=== PATIENT | female | born 1955 | race Caucasian/White ===

== ENCOUNTER → 2016-05-08 | Outpatient (CLI) | payer BC ==
[2016-05-08 18:01] LABS: BASO % 0.5 % (0.0-1.0); EOS # 0.2 K/mm3 (0.0-0.50); EOS % 2.4 % (0.0-3.0); LARGE UNSTAINED CELL # 0.2 K/mm3 (0.0-0.4); LARGE UNSTAINED CELL % 2.5 % (0.0-4.0); LYMPH # 2.5 K/mm3 (1.5-4.5); LYMPH % 31.8 % (24.0-44.0); MEAN CORPUSCULAR HEMOGLOBIN 31.2 pg (27.0-33.0); MEAN CORPUSCULAR HGB CONC 34.2 g/dl (32.0-36.5); MEAN CORPUSCULAR VOLUME 91.3 fl (80.0-96.0); MONO # 0.3 K/mm3 (0.0-0.8); MONO % 4.5 % (0.0-5.0); NEUTROPHILS # 4.5 K/mm3 (1.8-7.7); NEUTROPHILS % 58.5 % (36.0-66.0); PLATELET COUNT, AUTOMATED 284 k/mm3 (150-450); RED CELL DISTRIBUTION WIDTH 13.1 % (11.5-14.5); WHITE BLOOD COUNT 7.7 K/mm3 (4.0-10.0)
[2016-05-08 18:06] LABS: ALBUMIN 4.1 GM/DL (3.2-5.2); ALBUMIN/GLOBULIN RATIO 1.41 (1.00-1.93); ALKALINE PHOSPHATASE 77 U/L (45-117); ALT/SGPT 50 U/L (12-78); ANION GAP 7 MEQ/L (8-16); AST/SGOT 18 U/L (15-37); BILIRUBIN,TOTAL 0.4 MG/DL (0.2-1.0); BLOOD UREA NITROGEN 18 MG/DL (7-18); CARBON DIOXIDE LEVEL 33 MEQ/L (21-32); CHLORIDE LEVEL 106 MEQ/L (98-107); CHOLESTEROL LEVEL 229 MG/DL (<200); CREATININE FOR GFR 0.88 MG/DL (0.55-1.02); GLOMERULAR FILTRATION RATE > 60.0 (>45); GLUCOSE, FASTING 98 MG/DL (80-110); MAGNESIUM LEVEL 1.9 MG/DL (1.8-2.4); POTASSIUM SERUM 4.1 MEQ/L (3.5-5.1); SODIUM LEVEL 146 MEQ/L (136-145); TRIGLYCERIDES LEVEL 79 MG/DL (<150)
== END ==
LOC: M WUC 12:13
PROVIDERS: ATTEND Family Medicine
DX: I10 Essential (primary) hypertension (principal)

== ENCOUNTER → 2016-06-08 | Outpatient (REF) | payer BC ==
[2016-06-08 19:29] LABS: BACTERIA, URINE NONE SEEN; HYALINE CAST, URINE NONE SEEN /lpf (0-1); MICROSCOPIC EXAM PERFORMED; RBC, URINE 0-1 /hpf (0-3); SQUAMOUS EPITHELIAL CELL URINE SMALL AMOUNT /hpf (SMALL AMT); WBC, URINE NONE SEEN /hpf (0-3)
== END ==
LOC: M SMT 16:58
PROVIDERS: ATTEND Specialist
DX: N95.2 Postmenopausal atrophic vaginitis (principal)

== ENCOUNTER 2017-01-06 08:02 | Outpatient (CLI) | payer BC ==
[~2017-01-06] VITALS: Ht 154.9 cm; Wt 76.2 kg
[~2017-01-06 08:02] MED LIST: HYDR25TA6 PO; LOSA50TA20 PO; MULT1TAB10 PO
[2017-01-06] MEDS: NS 1,000 ML IV SCH ×2 (08:15→08:41)
[2017-01-06] MEDS ORDERED: PROPOFOL 200 MG/20 ML VIAL As Ordered ONE (08:55)
[2017-01-06] MEDS ORDERED: LIDOCAINE 2% INJ 100 MG/5 ML SDV (FOR ANES.) As Ordered ONE (08:56)
[2017-01-06] MEDS ORDERED: ONDANSETRON 4MG/2ML VIAL (J2405) As Ordered ONE (09:21)
--- NOTE | 2017-01-06 09:36 | ROOR ---
Patient Name: Catrachita Swann Procedure Date: 01/06/2017 9:16 AM Date of : 1955 Age: 61 Room: [facility] Gender: Female Note Status: Finalized Procedure: Total Colonoscopy to Cecum Indications: High risk colon cancer surveillance: Personal history of colon cancer Providers: Mo Coelho MD Referring MD: Henny Harvey MD Requesting Provider: Medicines: Monitored Anesthesia Care Complications: No immediate complications. Procedure: Pre-Anesthesia Assessment: - The heart rate, respiratory rate, oxygen saturations, blood pressure, adequacy of pulmonary ventilation, and response to care were monitored throughout the procedure. The Colonoscope was introduced through the anus and advanced to the cecum, identified by appendiceal orifice and ileocecal valve. The colonoscopy was performed without difficulty. The patient tolerated the procedure well. The quality of the bowel preparation was good. Findings: The perianal and digital rectal examinations were normal. Non-bleeding internal hemorrhoids were found during retroflexion. The hemorrhoids were small and Grade I (internal hemorrhoids that do not prolapse). Scattered small-mouthed diverticula were found in the recto-sigmoid colon, sigmoid colon and descending colon. The exam was otherwise without abnormality on direct and retroflexion views. Impression: - Non-bleeding internal hemorrhoids. - Diverticulosis in the recto-sigmoid colon, in the sigmoid colon and in the descending colon. - The examination was otherwise normal on direct and retroflexion views. - No specimens collected. Recommendation: - Patient has a contact number available for emergencies. The signs and symptoms of potential delayed complications were discussed with the patient. Return to normal activities tomorrow. Written discharge instructions were provided to the patient. - Discharge patient to home. - Continue present medications. - Repeat colonoscopy in 5 years for surveillance. - Return to referring physician. - High fiber diet. - The findings and recommendations were discussed with the patient's family. Mo Coelho MD Mo Coelho MD 01/06/2017 9:35:29 AM This report has been signed electronically. Number of Addenda: 0 Note Initiated On: 01/06/2017 9:16 AM Estimated Blood Loss: Estimated blood loss: none.
[2017-01-06 09:55] VITALS: BP 142/84
== END 2017-01-06 10:02 | disposition home or self-care (01) ==
LOC: M OPP 08:02
PROVIDERS: ATTEND Internal Medicine Gastroenterology
DX: Z12.11 Encounter for screening for malignant neoplasm of colon (principal); Z85.038 Personal history of other malignant neoplasm of large intestine; K64.0 First degree hemorrhoids; K57.30 Diverticulosis of large intestine without perforation or abscess without bleeding; I10 Essential (primary) hypertension; R12 Heartburn; Z86.19 Personal history of other infectious and parasitic diseases; M19.90 Unspecified osteoarthritis, unspecified site; M54.9 Dorsalgia, unspecified; G43.909 Migraine, unspecified, not intractable, without status migrainosus; Z87.440 Personal history of urinary (tract) infections; Z88.8 Allergy status to other drugs, medicaments and biological substances; Z88.5 Allergy status to narcotic agent; Z79.899 Other long term (current) drug therapy; Z83.71 Family history of colonic polyps; Z87.891 Personal history of nicotine dependence; Z80.0 Family history of malignant neoplasm of digestive organs
CPT/HCPCS: G0105; J2405

== ENCOUNTER 2017-09-14 16:17 | Emergency (ER) | payer BC, SELFPAY ==
[2017-09-14 17:11] LABS: BASO % 0.4 % (0.0-1.0); EOS # 0.2 10^3/uL (0.0-0.50); EOS % 1.8 % (0.0-3.0); HEMATOCRIT 44.6 % (36.0-47.0); HEMOGLOBIN 15.1 g/dl (12.0-15.5); IMMATURE GRANULOCYTE % 0.2 % (0-3.0); LYMPH # 3.1 10^3/uL (1.5-4.5); LYMPH % 31.6 % (24.0-44.0); MEAN CORPUSCULAR HEMOGLOBIN 30.3 pg (27.0-33.0); MEAN CORPUSCULAR HGB CONC 33.9 g/dl (32.0-36.5); MEAN CORPUSCULAR VOLUME 89.6 fl (80.0-96.0); MONO # 0.8 10^3/uL (0.0-0.8); MONO % 7.6 % (0.0-5.0); NEUTROPHILS # 5.7 10^3/uL (1.8-7.7); NEUTROPHILS % 58.4 % (36.0-66.0); PLATELET COUNT, AUTOMATED 330 10^3/uL (150-450); RED BLOOD COUNT 4.98 10^6/uL (4.00-5.40); RED CELL DISTRIBUTION WIDTH 13.2 % (11.5-14.5); WHITE BLOOD COUNT 9.8 10^3/uL (4.0-10.0)
[2017-09-14 17:38] LABS: ALBUMIN 4.1 GM/DL (3.2-5.2); ALBUMIN/GLOBULIN RATIO 1.24 (1.00-1.93); ALKALINE PHOSPHATASE 85 U/L (45-117); ALT/SGPT 172 U/L (12-78); ANION GAP 4 MEQ/L (8-16); AST/SGOT 244 U/L (7-37); BILIRUBIN,DIRECT 0.2 MG/DL (0.0-0.2); BILIRUBIN,TOTAL 0.4 MG/DL (0.2-1.0); BLOOD UREA NITROGEN 22 MG/DL (7-18); CALCIUM LEVEL 9.3 MG/DL (8.8-10.2); CARBON DIOXIDE LEVEL 34 MEQ/L (21-32); CHLORIDE LEVEL 105 MEQ/L (98-107); CPK CREATINE PHOSPHOKINASE 79 U/L (26-192); CREATININE FOR GFR 0.99 MG/DL (0.55-1.30); GLOMERULAR FILTRATION RATE > 60.0 (>45); GLUCOSE, FASTING 103 MG/DL (70-100); LIPASE 127 U/L (73-393); POTASSIUM SERUM 3.2 MEQ/L (3.5-5.1); SODIUM LEVEL 143 MEQ/L (136-145); TOTAL PROTEIN 7.4 GM/DL (6.4-8.2); TROPONIN I < 0.02 NG/ML (< 0.10)
[2017-09-14] MEDS: GI COCKTAIL 50ML BTL(HYOSCYAMINE/MAALOX/LIDOCAINE VISCOUS)(1:3:1) PO (17:48)
[2017-09-14] MEDS: ASPIRIN 81 MG CHEW TABLET PO (17:48)
[2017-09-14 17:53] LABS: CK-MB VALUE MASS 1.6 NG/ML (<3.6); MB/CK RELATIVE INDEX 2.02 (< OR =4); NT-PRO BNP 29 PG/ML (<125)
[2017-09-14] MEDS: POTASSIUM CHLORIDE 10 MEQ SR TABLET PO (18:24)
[2017-09-14 20:19] LABS: INR 0.92; PROTHROMBIN TIME 12.4 SECONDS (12.4-14.5)
[2017-09-14 22:22] LABS: CK-MB VALUE MASS 1.3 NG/ML (<3.6); CPK CREATINE PHOSPHOKINASE 61 U/L (26-192); MB/CK RELATIVE INDEX 2.13 (< OR =4); TROPONIN I < 0.02 NG/ML (< 0.10)
[2017-09-15 10:59] LABS: HEPATITIS B SURFACE ANTIGEN NEGATIVE (NEGATIVE)
[2017-09-15 11:26] LABS: HEPATITIS B CORE ANTIBODY IGM NEGATIVE (NEGATIVE)
[2017-09-15 11:28] LABS: HEPATITIS A ANTIBODY IGM NEGATIVE (NEGATIVE)
== END 2017-09-14 23:48 | disposition home or self-care (01) ==
LOC: M ED 16:17
DX: R07.89 Other chest pain (principal); I10 Essential (primary) hypertension; Z79.899 Other long term (current) drug therapy; Z88.5 Allergy status to narcotic agent; Z88.8 Allergy status to other drugs, medicaments and biological substances
CPT/HCPCS: 71045

== ENCOUNTER → 2017-10-05 | Outpatient (CLI) | payer BC ==
[2017-10-05 13:16] LABS: BASO % 0.5 % (0.0-1.0); EOS # 0.1 10^3/uL (0.0-0.50); EOS % 1.5 % (0.0-3.0); HEMATOCRIT 42.2 % (36.0-47.0); HEMOGLOBIN 14.5 g/dl (12.0-15.5); IMMATURE GRANULOCYTE % 0.1 % (0-3.0); LYMPH # 2.3 10^3/uL (1.5-4.5); LYMPH % 31.2 % (24.0-44.0); MEAN CORPUSCULAR HEMOGLOBIN 30.4 pg (27.0-33.0); MEAN CORPUSCULAR HGB CONC 34.4 g/dl (32.0-36.5); MEAN CORPUSCULAR VOLUME 88.5 fl (80.0-96.0); MONO # 0.5 10^3/uL (0.0-0.8); MONO % 7.4 % (0.0-5.0); NEUTROPHILS # 4.4 10^3/uL (1.8-7.7); NEUTROPHILS % 59.3 % (36.0-66.0); PLATELET COUNT, AUTOMATED 324 10^3/uL (150-450); RED BLOOD COUNT 4.77 10^6/uL (4.00-5.40); WHITE BLOOD COUNT 7.3 10^3/uL (4.0-10.0)
[2017-10-05 16:06] LABS: ALBUMIN 3.9 GM/DL (3.2-5.2); ALKALINE PHOSPHATASE 71 U/L (45-117); ALT/SGPT 39 U/L (12-78); ANION GAP 10 MEQ/L (8-16); AST/SGOT 17 U/L (7-37); BILIRUBIN,TOTAL 0.4 MG/DL (0.2-1.0); BLOOD UREA NITROGEN 21 MG/DL (7-18); CALCIUM LEVEL 8.8 MG/DL (8.8-10.2); CARBON DIOXIDE LEVEL 29 MEQ/L (21-32); CHLORIDE LEVEL 103 MEQ/L (98-107); CHOLESTEROL LEVEL 203 MG/DL (<200); CHOLESTEROL RISK RATIO 3.561 (<5); CREATININE FOR GFR 0.85 MG/DL (0.55-1.30); GLOMERULAR FILTRATION RATE > 60.0 (>45); GLUCOSE, FASTING 87 MG/DL (70-100); HDL CHOLESTEROL 57 MG/DL (>40); LDL CHOLESTEROL 132.4 MG/DL (<100); NON-HDL-C 146 MG/DL; POTASSIUM SERUM 3.9 MEQ/L (3.5-5.1); SODIUM LEVEL 142 MEQ/L (136-145); TOTAL PROTEIN 6.9 GM/DL (6.4-8.2); TRIGLYCERIDES LEVEL 68 MG/DL (<150)
== END ==
LOC: M WUC 11:37
DX: I10 Essential (primary) hypertension (principal)
CPT/HCPCS: 84443

== ENCOUNTER → 2017-10-22 | Outpatient (CLI) | payer BC ==
[2017-10-22 18:06] LABS: GAMMA GLUTAMYLTRANSPEPTIDASE 26 U/L (5-55)
[2017-10-22 18:06] LABS: AMYLASE 66 U/L (25-115); LIPASE 112 U/L (73-393)
== END ==
LOC: M WUC 14:27
DX: E78.2 Mixed hyperlipidemia (principal); R94.5 Abnormal results of liver function studies
CPT/HCPCS: 82150

== ENCOUNTER → 2017-12-29 | Outpatient (REF) | payer BC | LOC: M LAB REF 17:26 | DX: R30.0 Dysuria (principal) | CPT/HCPCS: 87186 ==

== ENCOUNTER → 2018-05-27 | Outpatient (CLI) | payer BC ==
[~2018-05-27] MED LIST changes: -LOSA50TA20 PO; +LOSA50TA88 PO; +TIZA2CAP
[2018-05-27 16:19] LABS: BASO # 0.1 10^3/uL (0.0-0.2); BASO % 0.6 % (0.0-1.0); EOS # 0.1 10^3/uL (0.0-0.50); EOS % 1.2 % (0.0-3.0); HEMOGLOBIN 15.3 g/dl (12.0-15.5); LYMPH # 2.4 10^3/uL (1.5-4.5); LYMPH % 29.8 % (24.0-44.0); MEAN CORPUSCULAR HEMOGLOBIN 30.2 pg (27.0-33.0); MEAN CORPUSCULAR HGB CONC 33.3 g/dl (32.0-36.5); MEAN CORPUSCULAR VOLUME 90.7 fl (80.0-96.0); MONO # 0.4 10^3/uL (0.0-0.8); MONO % 4.8 % (0.0-5.0); NEUTROPHILS # 5.2 10^3/uL (1.8-7.7); NEUTROPHILS % 63.4 % (36.0-66.0); PLATELET COUNT, AUTOMATED 358 10^3/uL (150-450); RED BLOOD COUNT 5.07 10^6/uL (4.00-5.40); WHITE BLOOD COUNT 8.2 10^3/uL (4.0-10.0)
[2018-05-27 17:03] LABS: BLOOD UREA NITROGEN 16 MG/DL (7-18); CARBON DIOXIDE LEVEL 31 MEQ/L (21-32); CHLORIDE LEVEL 103 MEQ/L (98-107); CREATININE FOR GFR 0.84 MG/DL (0.55-1.30); GLOMERULAR FILTRATION RATE > 60.0 (>45); GLUCOSE, FASTING 91 MG/DL (70-100); POTASSIUM SERUM 4.4 MEQ/L (3.5-5.1); SODIUM LEVEL 140 MEQ/L (136-145)
== END ==
LOC: M WUC 12:24
PROVIDERS: ATTEND Physician Assistant
DX: I10 Essential (primary) hypertension (principal)

== ENCOUNTER → 2019-02-16 | Outpatient (CLI) | payer BC ==
[2019-02-16 17:23] LABS: ALBUMIN 3.9 GM/DL (3.2-5.2); ALT/SGPT 29 U/L (12-78); BILIRUBIN,TOTAL 0.5 MG/DL (0.2-1.0); BLOOD UREA NITROGEN 14 MG/DL (7-18); CARBON DIOXIDE LEVEL 30 MEQ/L (21-32); CHLORIDE LEVEL 104 MEQ/L (98-107); CHOLESTEROL LEVEL 234 MG/DL (<200); GLOMERULAR FILTRATION RATE > 60.0 (>45); GLUCOSE, FASTING 85 MG/DL (70-100); HDL CHOLESTEROL 75 MG/DL (>40); LDL CHOLESTEROL 142 MG/DL (<100); NON-HDL-C 159 MG/DL; POTASSIUM SERUM 4.5 MEQ/L (3.5-5.1); SODIUM LEVEL 141 MEQ/L (136-145); TOTAL PROTEIN 6.8 GM/DL (6.4-8.2); TRIGLYCERIDES LEVEL 86 MG/DL (<150)
== END ==
LOC: M WUC 11:27
PROVIDERS: ATTEND Family Medicine
DX: I10 Essential (primary) hypertension (principal); E78.2 Mixed hyperlipidemia

== ENCOUNTER → 2019-04-18 | Outpatient (CLI) | payer BC ==
--- NOTE | 2019-04-18 15:52 | REP ---
Clinical: Osteoarthritis. Comparison: 08/23/2010 Technique: PA and lateral. Findings: The mediastinum and cardiac silhouette are normal. The lung christopher are clear and without acute consolidation, effusion, or pneumothorax. The skeletal structures are intact and normal. Impression: 1. No acute cardiopulmonary process. Electronically Signed by Roosevelt Chaney MD 04/18/2019 03:44 P
[2019-04-18 16:12] LABS: HEMATOCRIT 43.5 % (36.0-47.0); HEMOGLOBIN 14.5 g/dl (12.0-15.5); MEAN CORPUSCULAR HEMOGLOBIN 30.3 pg (27.0-33.0); MEAN CORPUSCULAR HGB CONC 33.3 g/dl (32.0-36.5); PLATELET COUNT, AUTOMATED 370 10^3/uL (150-450); RED BLOOD COUNT 4.78 10^6/uL (4.00-5.40); WHITE BLOOD COUNT 10.9 10^3/uL (4.0-10.0)
[2019-04-18 16:19] LABS: PROTHROMBIN TIME 12.9 SECONDS (11.8-14.0)
[2019-04-18 16:38] LABS: ALBUMIN 3.9 GM/DL (3.2-5.2); ALT/SGPT 55 U/L (12-78); BILIRUBIN,TOTAL 0.5 MG/DL (0.2-1.0); BLOOD UREA NITROGEN 23 MG/DL (7-18); CALCIUM LEVEL 9.1 MG/DL (8.8-10.2); CARBON DIOXIDE LEVEL 31 MEQ/L (21-32); CHLORIDE LEVEL 102 MEQ/L (98-107); CREATININE FOR GFR 0.79 MG/DL (0.55-1.30); GLOMERULAR FILTRATION RATE > 60.0 (>45); GLUCOSE, FASTING 90 MG/DL (70-100); POTASSIUM SERUM 3.6 MEQ/L (3.5-5.1); SODIUM LEVEL 140 MEQ/L (136-145)
[2019-04-18 18:25] LABS: ERYTHROCYTE SEDIMENTATION RATE 8 mm/hr (0-30)
--- NOTE | 2019-04-20 07:48 | ECGEPIP ---
[facility] Test Date: 2019-04-18 Pat Name: DEMETRIUS WATSON Department: Room: - Gender: Female [employer] Professor: RF : 1955 Requested By: Henny Alfaro Order Number: [id number] Reading MD: Levar Marcano Measurements Intervals [place] Rate: 57 P: 28 NE: 158 QRS: -14 QRSD: 92 T: 34 QT: 445 QTc: 436 Interpretive Statements Sinus bradycardia Low QRS complex voltage in the precordial leads Delayed anterior R wave progression Nonspecific ST-T wave abnormalities No significant change when compared to prior tracing of 09/14/2017 Electronically Signed on 04-20-2019 7:47:38 EST by Levar Marcano
== END ==
LOC: M LAB 14:54
PROVIDERS: ATTEND Family Medicine
DX: Z01.810 Encounter for preprocedural cardiovascular examination (principal); R00.1 Bradycardia, unspecified; M17.12 Unilateral primary osteoarthritis, left knee

== ENCOUNTER → 2019-12-19 | Outpatient (CLI) | payer BC ==
[~2019-12-19] MED LIST changes: +BIOT10TA2 PO; +CALC500C16 PO; +HYDR25TAB PO; +MAGN250T7 PO; +NO ITAB PO; +PERC5TAB12 PO; +SELE200T10 PO; +TUMETAB PO; +VITA500079 PO; +XARE10TA PO
[2019-12-19 13:50] LABS: BLOOD UREA NITROGEN 16 MG/DL (7-18); CALCIUM LEVEL 8.8 MG/DL (8.8-10.2); CARBON DIOXIDE LEVEL 34 MEQ/L (21-32); CHLORIDE LEVEL 104 MEQ/L (98-107); CHOLESTEROL LEVEL 204 MG/DL (<200); CHOLESTEROL RISK RATIO 3.777 (<5); CREATININE FOR GFR 0.83 MG/DL (0.55-1.30); FREE T4 0.97 NG/DL (0.76-1.46); GLOMERULAR FILTRATION RATE > 60.0 (>45); GLUCOSE, FASTING 93 MG/DL (70-100); HDL CHOLESTEROL 54 MG/DL (>40); LDL CHOLESTEROL 134 MG/DL (<100); NON-HDL-C 150 MG/DL; POTASSIUM SERUM 4.2 MEQ/L (3.5-5.1); SODIUM LEVEL 141 MEQ/L (136-145); TRIGLYCERIDES LEVEL 81 MG/DL (<150)
== END ==
LOC: M PLALAB 11:19
PROVIDERS: ATTEND Nurse Practitioner Family
DX: I10 Essential (primary) hypertension (principal)

== ENCOUNTER → 2020-09-23 | Outpatient (CLI) | payer BC ==
[~2020-09-23] MED LIST changes: +HYDR-3490 PO; -HYDR25TAB PO
[2020-09-23 14:16] LABS: ALBUMIN 3.7 GM/DL (3.2-5.2); ALT/SGPT 29 U/L (12-78); BILIRUBIN,DIRECT < 0.1 MG/DL (0.0-0.2); BILIRUBIN,TOTAL 0.3 MG/DL (0.2-1.0); BLOOD UREA NITROGEN 24 MG/DL (7-18); CALCIUM LEVEL 8.8 MG/DL (8.8-10.2); CARBON DIOXIDE LEVEL 30 MEQ/L (21-32); CHLORIDE LEVEL 106 MEQ/L (98-107); CREATININE FOR GFR 0.79 MG/DL (0.55-1.30); FREE T4 1.04 NG/DL (0.76-1.46); GLOMERULAR FILTRATION RATE > 60.0 (>45); GLUCOSE, FASTING 92 MG/DL (70-100); POTASSIUM SERUM 3.7 MEQ/L (3.5-5.1); SODIUM LEVEL 141 MEQ/L (136-145); TOTAL PROTEIN 6.3 GM/DL (6.4-8.2)
== END ==
LOC: M PLALAB 11:05
PROVIDERS: ATTEND Nurse Practitioner Family
DX: I10 Essential (primary) hypertension (principal); N95.1 Menopausal and female climacteric states

== ENCOUNTER → 2021-08-26 | Outpatient (CLI) | payer BC, MEDICARE ==
[~2021-08-26] MED LIST changes: +LOSA50TA28 PO; -LOSA50TA88 PO
[2021-08-26 13:43] LABS: HEMATOCRIT 39.3 % (36.0-47.0); HEMOGLOBIN 12.6 g/dl (12.0-15.5); MEAN CORPUSCULAR HEMOGLOBIN 29.7 pg (27.0-33.0); MEAN CORPUSCULAR HGB CONC 32.1 g/dl (32.0-36.5); MEAN CORPUSCULAR VOLUME 92.7 fl (80.0-96.0); PLATELET COUNT, AUTOMATED 193 10^3/uL (150-450); RED BLOOD COUNT 4.24 10^6/uL (4.00-5.40); WHITE BLOOD COUNT 26.2 10^3/uL (4.0-10.0)
[2021-08-26 14:04] LABS: ALBUMIN 3.9 GM/DL (3.2-5.2); ALT/SGPT 53 U/L (12-78); BILIRUBIN,TOTAL 0.4 MG/DL (0.2-1.0); BLOOD UREA NITROGEN 21 MG/DL (7-18); CALCIUM LEVEL 9.2 MG/DL (8.8-10.2); CARBON DIOXIDE LEVEL 32 MEQ/L (21-32); CHLORIDE LEVEL 105 MEQ/L (98-107); CHOLESTEROL LEVEL 220 MG/DL (<200); CHOLESTEROL RISK RATIO 4.074 (<5); CREATININE FOR GFR 0.93 MG/DL (0.55-1.30); FERRITIN 75 NG/ML (8-252); FREE T4 1.06 NG/DL (0.76-1.46); GLOMERULAR FILTRATION RATE > 60.0 (>45); GLUCOSE, FASTING 100 MG/DL (70-100); HDL CHOLESTEROL 54 MG/DL (>40); IRON (FE) 86 UG/DL (50-170); LDL CHOLESTEROL 144 MG/DL (<100); NON-HDL-C 166 MG/DL; PERCENT SATURATION 28.9 % (13.2-45.0); POTASSIUM SERUM 4.1 MEQ/L (3.5-5.1); SODIUM LEVEL 141 MEQ/L (136-145); TOTAL IRON BINDING CAPACITY 298 UG/DL (250-450); TOTAL PROTEIN 6.5 GM/DL (6.4-8.2); TRIGLYCERIDES LEVEL 109 MG/DL (<150); VITAMIN B12 LEVEL 960 PG/ML
[2021-08-26 14:46] LABS: ATYPICAL LYMPH 22 % (0-5); LYMPHOCYTES 55 % (16-44); MONOCYTES 1 % (0-5); NEUTROPHILS 22 % (28-66); PLATELET ESTIMATE NORMAL (NORMAL)
== END ==
LOC: M PLALAB 11:40
PROVIDERS: ATTEND Nurse Practitioner Family
DX: I10 Essential (primary) hypertension (principal); R53.83 Other fatigue

== ENCOUNTER → 2021-10-08 | Outpatient (CLI) | payer MEDICARE ==
[~2021-10-08] MED LIST changes: +GASTROGRAFIN SOLUTION 30ML (Q9963) As Ordered ONE; +ISOVUE-370 76% 100ML VIAL As Ordered ONE; +RA B1TAB7 PO; +[UNRECOGNIZED DRUG - OTHER] PO
== END ==
LOC: M RAD 09:21
PROVIDERS: ATTEND Internal Medicine Hematology & Oncology
DX: C91.10 Chronic lymphocytic leukemia of B-cell type not having achieved remission (principal); K92.2 Gastrointestinal hemorrhage, unspecified; R59.0 Localized enlarged lymph nodes; E04.1 Nontoxic single thyroid nodule; K80.20 Calculus of gallbladder without cholecystitis without obstruction; K57.30 Diverticulosis of large intestine without perforation or abscess without bleeding
CPT/HCPCS: 71260; 74177; Q9963; Q9967

== ENCOUNTER → 2021-11-05 | Outpatient (CLI) | payer MEDICARE ==
[~2021-11-05] MED LIST changes: -GASTROGRAFIN SOLUTION 30ML (Q9963) As Ordered ONE; -ISOVUE-370 76% 100ML VIAL As Ordered ONE
== END ==
LOC: M WHC 08:56
PROVIDERS: ATTEND Nurse Practitioner Family
DX: Z12.31 Encounter for screening mammogram for malignant neoplasm of breast (principal); M85.89 Other specified disorders of bone density and structure, multiple sites

== ENCOUNTER → 2022-03-08 | Outpatient (CLI) | payer MEDICARE ==
[~2022-03-08] MED LIST changes: +AMOX500T PO; +CALC250T PO; +CENT50TA PO; +CLAR500T97 PO; +DOXY-444 PO; +PANT40TA29 PO
== END ==
LOC: M LABSMTC 10:21
PROVIDERS: ATTEND Anesthesiology
DX: Z01.812 Encounter for preprocedural laboratory examination (principal); Z11.52 Encounter for screening for COVID-19

== ENCOUNTER 2022-03-11 10:25 | Day surgery (SDC) | payer MEDICARE ==
[~2022-03-11] VITALS: Ht 154.9 cm; Wt 74.8 kg
[~2022-03-11 10:25] MED LIST changes: +NS 1,000 ML IV ONE; +propofoL 200 MG/20 ML VIAL As Ordered ONE
[2022-03-11] MEDS ORDERED: fentaNYL 100 MCG/2 ML INJECTION As Ordered ONE (12:36)
[2022-03-11 13:26] VITALS: BP 119/69
== END 2022-03-11 13:25 | disposition home or self-care (01) ==
LOC: M OPP 10:25
PROVIDERS: ATTEND Internal Medicine Gastroenterology
DX: Z12.11 Encounter for screening for malignant neoplasm of colon (principal); Z80.0 Family history of malignant neoplasm of digestive organs; K29.50 Unspecified chronic gastritis without bleeding; K64.0 First degree hemorrhoids; K57.30 Diverticulosis of large intestine without perforation or abscess without bleeding; K31.89 Other diseases of stomach and duodenum; I10 Essential (primary) hypertension; E78.5 Hyperlipidemia, unspecified; K21.9 Gastro-esophageal reflux disease without esophagitis; M19.90 Unspecified osteoarthritis, unspecified site; G43.909 Migraine, unspecified, not intractable, without status migrainosus; Z87.891 Personal history of nicotine dependence; Z88.5 Allergy status to narcotic agent; Z79.899 Other long term (current) drug therapy
CPT/HCPCS: 43239; 88305; G0105; J3010

== ENCOUNTER → 2022-03-18 | Outpatient (CLI) | payer MEDICARE ==
[~2022-03-18] MED LIST changes: -NS 1,000 ML IV ONE; -propofoL 200 MG/20 ML VIAL As Ordered ONE
== END ==
LOC: M PLALAB 13:21
PROVIDERS: ATTEND Internal Medicine Cardiovascular Disease
DX: I10 Essential (primary) hypertension (principal); Z53.9 Procedure and treatment not carried out, unspecified reason

== ENCOUNTER → 2022-03-20 | Outpatient (REF) | payer MEDICARE | LOC: M PLALAB 12:58 | PROVIDERS: ATTEND Internal Medicine Cardiovascular Disease | DX: I10 Essential (primary) hypertension (principal) ==

== ENCOUNTER → 2022-09-03 | Outpatient (CLI) | payer MEDICARE ==
[~2022-09-03] MED LIST changes: +MAGN100T PO
== END ==
LOC: M RAD 09:57
PROVIDERS: ATTEND Internal Medicine Medical Oncology
DX: C91.10 Chronic lymphocytic leukemia of B-cell type not having achieved remission (principal); R16.1 Splenomegaly, not elsewhere classified; R59.0 Localized enlarged lymph nodes

== ENCOUNTER → 2022-09-28 | Outpatient (CLI) | payer MEDICARE ==
[2022-09-28 14:33] LABS: CALCIUM LEVEL 8.7 MG/DL (8.3-10.6); CHOLESTEROL RISK RATIO 4.47 (<5); CREATININE FOR GFR 1.01 MG/DL (0.55-1.30); GLOMERULAR FILTRATION RATE 58.4 (>45); HDL CHOLESTEROL 50.9 MG/DL (>40); LDL CHOLESTEROL 155.5 MG/DL (<100); NON-HDL-C 177.1 MG/DL; POTASSIUM SERUM 4.3 MMOL/L (3.5-5.1)
[2022-09-28 14:34] LABS: THYROID STIMULATING HORMONE 1.188 uIU/ML (0.55-4.78)
[2022-09-28 14:35] LABS: FREE T4 1.1 NG/DL (0.89-1.76)
== END ==
LOC: M PLALAB 10:55
PROVIDERS: ATTEND Nurse Practitioner Family
DX: R00.2 Palpitations (principal)

== ENCOUNTER → 2023-02-11 | Outpatient (CLI) | payer MEDICARE ==
[~2023-02-11] MED LIST changes: +ALLO10TA PO; +GASTROGRAFIN SOLUTION 30ML As Ordered ONE; +IMBR1CAP PO; +ISOVUE-370 76% 100ML VIAL As Ordered ONE
== END ==
LOC: M RAD 07:06
PROVIDERS: ATTEND Nurse Practitioner
DX: C91.10 Chronic lymphocytic leukemia of B-cell type not having achieved remission (principal); R59.0 Localized enlarged lymph nodes
CPT/HCPCS: 70491; 71260; 74177; Q9963; Q9967

== ENCOUNTER → 2023-03-23 | Outpatient (CLI) | payer MEDICARE ==
[~2023-03-23] MED LIST changes: -GASTROGRAFIN SOLUTION 30ML As Ordered ONE; -ISOVUE-370 76% 100ML VIAL As Ordered ONE
== END ==
LOC: M PLALAB 12:11
PROVIDERS: ATTEND Nurse Practitioner Family
DX: M54.6 Pain in thoracic spine (principal); M54.50 Low back pain, unspecified; M47.814 Spondylosis without myelopathy or radiculopathy, thoracic region; M47.816 Spondylosis without myelopathy or radiculopathy, lumbar region; M43.16 Spondylolisthesis, lumbar region

== ENCOUNTER → 2023-11-02 | Outpatient (CLI) | payer MEDICARE ==
[~2023-11-02] MED LIST changes: +DOXY-440 PO; -DOXY-444 PO; +LEXA5TAB13 PO
[2023-11-02 10:27] LABS: ALBUMIN 3.6 G/DL (3.2-5.2); ALKALINE PHOSPHATASE 68 U/L (46-116); ALT/SGPT 20 U/L (7.0-40); AST/SGOT 11 U/L (<34); BILIRUBIN,TOTAL 0.6 MG/DL (0.3-1.2); BLOOD UREA NITROGEN 17 MG/DL (9-23); CARBON DIOXIDE LEVEL 31 MMOL/L (20-31); CHLORIDE LEVEL 106 MMOL/L (98-107); CHOLESTEROL LEVEL 154 MG/DL (<200); CHOLESTEROL RISK RATIO 2.46 (<5); CREATININE FOR GFR 0.84 MG/DL (0.55-1.30); GLOMERULAR FILTRATION RATE > 60.0 (>45); GLUCOSE, FASTING 97 MG/DL (74-106); HDL CHOLESTEROL 62.6 MG/DL (>40); LDL CHOLESTEROL 78.4 MG/DL (<100); NON-HDL-C 91.4 MG/DL; POTASSIUM SERUM 3.7 MMOL/L (3.5-5.1); SODIUM LEVEL 142 MMOL/L (136-145); TOTAL PROTEIN 5.4 G/DL (5.7-8.2); TRIGLYCERIDES LEVEL 65 MG/DL (<150)
== END ==
LOC: M PLALAB 08:19
PROVIDERS: ATTEND Nurse Practitioner Family
DX: I10 Essential (primary) hypertension (principal)

== ENCOUNTER 2024-09-05 04:17 | Emergency (ER) | payer MEDICARE ==
[~2024-09-05] VITALS: Ht 152.4 cm; Wt 79.5 kg
[2024-09-05 05:16] LABS: BASO % 0.5 % (0.0-1.0); EOS # 0.1 10^3/uL (0.0-0.5); EOS % 0.8 % (0.0-3.0); HEMATOCRIT 43.8 % (36.0-47.0); HEMOGLOBIN 15.1 g/dl (12.0-15.5); LYMPH # 3.1 10^3/uL (1.5-5.0); LYMPH % 36.5 % (24.0-44.0); MEAN CORPUSCULAR HGB CONC 34.5 g/dl (32.0-36.5); MEAN CORPUSCULAR VOLUME 87.1 fl (80.0-96.0); MONO # 0.6 10^3/uL (0.0-0.8); MONO % 7.2 % (2.0-8.0); NEUTROPHILS # 4.7 10^3/uL (1.5-8.5); NEUTROPHILS % 54.8 % (36.0-66.0); PLATELET COUNT, AUTOMATED 205 10^3/uL (150-450); RED BLOOD COUNT 5.03 10^6/uL (4.00-5.40); WHITE BLOOD COUNT 8.5 10^3/uL (4.0-10.0)
[2024-09-05 05:33] LABS: LIPASE 43 U/L (12-53)
[2024-09-05 05:34] LABS: CPK CREATINE PHOSPHOKINASE 24 U/L (34-145)
[2024-09-05 05:35] LABS: ALKALINE PHOSPHATASE 63 U/L (35-104); ALT/SGPT 16 U/L (7.0-40); AST/SGOT 11 U/L (<34); BILIRUBIN,DIRECT 0.2 MG/DL (<0.4); BILIRUBIN,TOTAL 0.6 MG/DL (0.3-1.2); BLOOD UREA NITROGEN 23 MG/DL (9-23); CALCIUM LEVEL 9.4 MG/DL (8.3-10.6); CARBON DIOXIDE LEVEL 27 MMOL/L (20-31); CHLORIDE LEVEL 105 MMOL/L (98-107); CK-MB VALUE MASS < 1.0 NG/ML (<3.6); CREATININE FOR GFR 0.78 MG/DL (0.55-1.30); GLOMERULAR FILTRATION RATE 82.7 (>45); GLUCOSE, FASTING 109 MG/DL (74-106); MB/CK RELATIVE INDEX 4.16 (< OR =4); POTASSIUM SERUM 3.2 MMOL/L (3.5-5.1); SODIUM LEVEL 142 MMOL/L (136-145)
[2024-09-05] MEDS ORDERED: ISOVUE-370 76% 100ML VIAL As Ordered ONE (08:18)
[2024-09-05] MEDS ORDERED: CLAR10CA3 PO (08:45)
[2024-09-05 09:44] VITALS: BP 163/80
[2024-09-05] MEDS: LOSARTAN 50MG TABLET PO ONE (09:44)
[2024-09-05] MEDS ORDERED: PROT1TAB2 PO (10:27)
[2024-09-05 10:45] VITALS: BP 148/81; TEMP 98.3; O2SAT 97
== END 2024-09-05 10:56 | disposition home or self-care (01) ==
LOC: M ED 04:17
DX: R07.9 Chest pain, unspecified (principal); K21.9 Gastro-esophageal reflux disease without esophagitis; I10 Essential (primary) hypertension; Z88.5 Allergy status to narcotic agent; Z79.899 Other long term (current) drug therapy
CPT/HCPCS: 36415; 71045; 71275; 80048; 80076; 82550; 82553; 83690; 83880; 84484; 85025; 87486; 87581; 87633; 87798; 93005; 99285; Q9967

== ENCOUNTER → 2024-12-06 | Outpatient (CLI) | payer MEDICARE ==
[~2024-12-06] MED LIST changes: +AZIT-12 PO; +CLAR10CA3 PO; +LIDOCAINE 1% MDV 20 ML VIAL SC ONE; +PROT1TAB2 PO
[2024-12-06 13:55] VITALS: BP 143/72; TEMP 97.2; O2SAT 97
== END ==
LOC: M IRPRO 13:40
PROVIDERS: ATTEND Otolaryngology
DX: E04.1 Nontoxic single thyroid nodule (principal)

== ENCOUNTER → 2025-03-13 | Outpatient (REF) | payer MEDICARE ==
[~2025-03-13] MED LIST changes: -LIDOCAINE 1% MDV 20 ML VIAL SC ONE
[2025-03-13 10:03] LABS: ALT/SGPT 22.0 U/L (7.0-40); AST/SGOT 19.0 U/L (<34); CALCIUM LEVEL 9.3 MG/DL (8.3-10.6); CARBON DIOXIDE LEVEL 30.0 MMOL/L (20-31); CHLORIDE LEVEL 102.0 MMOL/L (98-107); CHOLESTEROL LEVEL 171.0 MG/DL (<200); CHOLESTEROL RISK RATIO 2.55 (<5); CREATININE FOR GFR 0.94 MG/DL (0.55-1.30); GLOMERULAR FILTRATION RATE 65.7 (>45); LDL CHOLESTEROL 91.1 MG/DL (<100); NON-HDL-C 104.1 MG/DL; POTASSIUM SERUM 3.9 MMOL/L (3.5-5.1); SODIUM LEVEL 142.0 MMOL/L (136-145); TRIGLYCERIDES LEVEL 65.0 MG/DL (<150)
[2025-03-13 10:05] LABS: FREE T4 1.53 NG/DL (0.89-1.76)
== END ==
LOC: M LAB REF 09:13
PROVIDERS: ATTEND Nurse Practitioner Family
DX: I10 Essential (primary) hypertension (principal)